=== PATIENT | female | born 2005 | race Caucasian/White ===

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

== ENCOUNTER → 2023-07-01 | Outpatient (CLI) | payer OTHER ==
[2023-07-01 17:22] LABS: RHEUMATOID FACTOR QUANT 13.4 IU/ML (<14); THYROID STIMULATING HORMONE 2.113 uIU/ML (0.48-4.17)
[2023-07-01 17:23] LABS: TOTAL 25(OH) VITAMIN D 68.1 NG/ML (20.0-100.0)
[2023-07-01 17:24] LABS: FOLATE > 24.0 NG/ML (>5.4)
[2023-07-01 17:33] LABS: HEMOGLOBIN A1c 5.2 % (4.0-6.0)
[2023-07-01 17:40] LABS: VITAMIN B12 LEVEL 1430 PG/ML (211-911)
== END ==
LOC: M LAB 16:02
PROVIDERS: ATTEND Psychiatry & Neurology Neurology
DX: G62.9 Polyneuropathy, unspecified (principal)

== ENCOUNTER → 2024-01-05 | Outpatient (REF) | payer OTHER ==
[~2024-01-05] MED LIST changes: +ONDA-282 PO; -ONDA4TAB6 PO
== END ==
LOC: M LAB REF 19:37
PROVIDERS: ATTEND Physician Assistant
DX: J02.9 Acute pharyngitis, unspecified (principal)

== ENCOUNTER → 2024-02-07 | Outpatient (CLI) | payer OTHER ==
[2024-02-07 16:17] LABS: BACTERIA, URINE AUTO NEGATIVE (NEGATIVE); BILIRUBIN, URINE AUTO NEGATIVE (NEGATIVE); BLOOD, URINE BLOOD NEGATIVE (NEGATIVE); COLOR, URINE YELLOW (YELLOW); GLUCOSE, URINE (UA) AUTO NEGATIVE (NEGATIVE); KETONE, URINE AUTO NEGATIVE (NEGATIVE); LEUKOCYTE ESTERASE, URINE AUTO NEGATIVE (NEGATIVE); MUCUS, URINE SMALL (NEGATIVE); NITRITE, URINE AUTO NEGATIVE (NEGATIVE); PROTEIN, URINE AUTO NEGATIVE (NEGATIVE); RBC, URINE AUTO 0 /HPF (0-3); SPECIFIC GRAVITY URINE AUTO 1.017 (1.002-1.035); SQUAMOUS EPITHELIAL CELL UR AU 0 /HPF (0-6); UROBILINOGEN, URINE AUTO 0.2 mg/dL (0.0-2.0); WBC, URINE AUTO 1 /HPF (0-3)
[2024-02-08 07:31] LABS: APPEARANCE, URINE CLEAR (CLEAR)
== END ==
LOC: M LAB 16:00
PROVIDERS: ATTEND Physician Assistant
DX: R30.0 Dysuria (principal)

== ENCOUNTER → 2024-02-08 | Outpatient (CLI) | payer OTHER | LOC: M WUC 15:54 | PROVIDERS: ATTEND Nurse Practitioner Family | DX: R10.31 Right lower quadrant pain (principal) ==

== ENCOUNTER 2024-04-25 15:44 | Emergency (ER) | payer OTHER ==
[~2024-04-25] VITALS: Ht 157.5 cm; Wt 55.4 kg
[2024-04-25] MEDS ORDERED: PROP60CA (16:34)
[2024-04-25] MEDS ORDERED: FAMO40TA3 (16:34)
[2024-04-25] MEDS ORDERED: BUSP5TA (16:34)
[2024-04-25] MEDS ORDERED: PANT40TA29 (16:34)
[2024-04-25 19:55] VITALS: BP 96/70; TEMP 98.3; O2SAT 96
[2024-04-25 21:29] LABS: GC DNA AMPLIFICATION NEGATIVE (NEGATIVE)
== END 2024-04-25 20:15 | disposition home or self-care (01) ==
LOC: M ED 15:44
DX: R35.0 Frequency of micturition (principal); J45.909 Unspecified asthma, uncomplicated; F41.9 Anxiety disorder, unspecified; F32.A Depression, unspecified; G90.A Postural orthostatic tachycardia syndrome [POTS]; Z79.899 Other long term (current) drug therapy; Z88.0 Allergy status to penicillin; Z79.890 Hormone replacement therapy

== ENCOUNTER → 2024-06-16 | Outpatient (CLI) | payer OTHER ==
[~2024-06-16] MED LIST changes: +BUSP5TA; +FAMO40TA3; +PANT40TA29; +PROP60CA
== END ==
LOC: M WUC 11:34
PROVIDERS: ATTEND Physician Assistant
DX: M25.552 Pain in left hip (principal)

== ENCOUNTER 2024-07-29 19:22 | Emergency (ER) | payer OTHER ==
[~2024-07-29] VITALS: Ht 157.5 cm; Wt 56.2 kg
[2024-07-29 23:44] VITALS: BP 127/74; TEMP 97.6; O2SAT 100
== END 2024-07-29 23:50 | disposition home or self-care (01) ==
LOC: EDSEX 19:22 → M ED 19:22
DX: R51.9 Headache, unspecified (principal); H57.00 Unspecified anomaly of pupillary function; Q79.60 Ehlers-Danlos syndrome, unspecified; Z79.890 Hormone replacement therapy; Z79.899 Other long term (current) drug therapy; Z88.0 Allergy status to penicillin

== ENCOUNTER → 2025-01-19 | Outpatient (CLI) | payer OTHER ==
[~2025-01-19] MED LIST changes: +VANC125C13 PO; -VANC125C3 PO
== END ==
LOC: M WUC 14:23
PROVIDERS: ATTEND Physician Assistant
DX: M54.6 Pain in thoracic spine (principal)

== ENCOUNTER → 2025-02-02 | Outpatient (CLI) | payer OTHER ==
[2025-02-02 16:22] LABS: BASO # 0.0 10^3/uL (0.0-0.2); BASO % 0.4 % (0.0-1.0); EOS # 0.1 10^3/uL (0.0-0.5); EOS % 1.5 % (0.0-3.0); LYMPH # 3.7 10^3/uL (1.5-5.0); LYMPH % 51.3 % (24.0-44.0); MONO # 0.6 10^3/uL (0.0-0.8); MONO % 8.4 % (2.0-8.0); NEUTROPHILS # 2.7 10^3/uL (1.5-8.5); NEUTROPHILS % 38.3 % (36.0-66.0); PLATELET COUNT, AUTOMATED 156 10^3/uL (150-450)
== END ==
LOC: M LAB 15:09
PROVIDERS: ATTEND Physician Assistant
DX: Z13.9 Encounter for screening, unspecified (principal); Z79.890 Hormone replacement therapy